=== PATIENT | male | born 1975 | race Two or more races ===

== ENCOUNTER 2019-09-17 06:17 | Inpatient (IN) | payer OTHER ==
[~2019-09-17] VITALS: Ht 182.9 cm; Wt 122.5 kg
[2019-09-17 08:14] LABS: CALCIUM 7.1 mg/dL (8.5-10.1); CARBON DIOXIDE 21.2 mmol/L (21-32); CHLORIDE SERUM 108 mmol/L (98-107); CREATININE SERUM 1.3 mg/dL (0.7-1.3); GFR1 > 60 mL/min; GLUCOSE SERUM 182 mg/dL (74-106); PLATELET COUNT 403 x10^3mcL (130-400); SODIUM SERUM 139 mmol/L (136-145)
[2019-09-17 08:19] LABS: ALKALINE PHOSPHATASE 74 U/L (46-116); ALT/SGPT 22 U/L (16-63); AST/SGOT 14 U/L (15-37); BILIRUBIN TOTAL 0.14 mg/dL (0.20-1.00)
[2019-09-17 08:24] LABS: ALBUMIN 2.5 g/dL (3.4-5.0); TOTAL PROTEIN, SERUM 5.5 g/dL (6.4-8.2)
[2019-09-17 09:04] LABS: PLATELET COUNT 405 x10^3mcL (130-400); RED CELL DISTRIBUTION WIDTH 18.2 % (11.5-14.5)
[2019-09-17 09:21] LABS: AMPHETAMINE QUAL UR POSITIVE (See below)
[2019-09-17 09:54] LABS: BAND NEUTROPHIL 4 % (0-10); MONOCYTE 4 % (0-7); SEGMENTED NEUTROPHILS 83 % (37-75)
[2019-09-17 09:55] LABS: rbc morphology (normal/abnorm) NORMAL (NORMAL)
[2019-09-17 10:24] LABS: BAND NEUTROPHIL 6 % (0-10); MONOCYTE 4 % (0-7); SEGMENTED NEUTROPHILS 83 % (37-75); rbc morphology (normal/abnorm) ABNORMAL (NORMAL)
[2019-09-17] MEDS ORDERED: PRILOSEC OTC20 M1 PO (10:46)
[2019-09-17 11:29] LABS: AMYLASE 48 U/L (25-115); CHOLESTEROL 169 mg/dL (<200); CHOLESTEROL/HDL RATIO 7.7; HDL CHOLESTEROL 22 mg/dL (40-60); LIPASE 176 IU/L (73-393); MAGNESIUM 1.7 mg/dL (1.8-2.4); PHOSPHOROUS 3.5 mg/dL (2.5-4.9); TRIGLYCERIDES 491 mg/dL (<150)
[2019-09-17 11:31] LABS: UA SPECIFIC GRAVITY 1.015 (1.005-1.035); microscopic required? YES; urine erythrocyte NEGATIVE (NEGATIVE)
[2019-09-17 11:33] LABS: C REACTIVE PROTEIN 1.3 mg/dL (<=0.9)
[2019-09-17 11:38] LABS: T3 TOTAL 1.42 ng/mL
[2019-09-17 11:54] LABS: FREE T4 1.18 ng/dL (0.76-1.46); FREE THYROXINE INDEX 2.5 ug/dL (1.4-4.5); T4(THYROXINE) 6.7 ug/dL (4.7-13.3)
[2019-09-17] MEDS ORDERED: PROAIR HFA8.5 GM INH (11:59)
[2019-09-17 14:05] VITALS: BP 117/85
[2019-09-17 17:02] VITALS: BP 114/85
[2019-09-17 17:05] VITALS: Ht 182.9 cm; Wt 122.5 kg
[2019-09-17 20:54] VITALS: BP 135/87
== END 2019-09-18 04:13 | disposition left against medical advice (07) | DRG 811 ==
LOC: ED 06:17 → DU 10:43 → IC 10:43 → DU 15:56
PROVIDERS: Student in an Organized Health Care Education/Training Program; ADMIT Internal Medicine; ATTEND Internal Medicine
DX: T78.04XA Anaphylactic reaction due to fruits and vegetables, initial encounter (principal); E43 Unspecified severe protein-calorie malnutrition; E83.51 Hypocalcemia; E83.42 Hypomagnesemia; E11.9 Type 2 diabetes mellitus without complications; I10 Essential (primary) hypertension; J45.909 Unspecified asthma, uncomplicated; E78.5 Hyperlipidemia, unspecified; Z91.018 Allergy to other foods; E78.1 Pure hyperglyceridemia; Z68.34 Body mass index [BMI] 34.0-34.9, adult; Z53.29 Procedure and treatment not carried out because of patient's decision for other reasons
CPT/HCPCS: 82962; 83880; 84439; 85378; G0378; G0480; J0171; J1200; J2920; J2930; J3490; J3535; J7626; Q0092

== ENCOUNTER 2020-03-02 18:03 | Emergency (ER) | payer OTHER ==
[~2020-03-02] VITALS: Ht 182.9 cm; Wt 127.9 kg
[~2020-03-02 18:03] MED LIST: PRILOSEC OTC20 M1 PO; PROAIR HFA8.5 GM INH
[2020-03-02 18:06] VITALS: Ht 182.9 cm; Wt 127.9 kg
[2020-03-02 19:46] VITALS: BP 116/66
== END 2020-03-02 19:46 | disposition home or self-care (01) ==
LOC: ED 18:03
DX: S43.401A Unspecified sprain of right shoulder joint, initial encounter (principal); I10 Essential (primary) hypertension; E11.9 Type 2 diabetes mellitus without complications; E78.00 Pure hypercholesterolemia, unspecified; Z90.89 Acquired absence of other organs; Z88.8 Allergy status to other drugs, medicaments and biological substances; W17.89XA Other fall from one level to another, initial encounter; Y93.89 Activity, other specified; Y92.89 Other specified places as the place of occurrence of the external cause; Y99.8 Other external cause status
CPT/HCPCS: J1885

== ENCOUNTER 2020-03-12 06:57 | Emergency (ER) | payer OTHER ==
[~2020-03-12] VITALS: Ht 182.9 cm; Wt 122.5 kg
[2020-03-12 06:59] VITALS: BP 122/83; Ht 182.9 cm; Wt 122.5 kg
== END 2020-03-12 09:14 | disposition home or self-care (01) ==
LOC: ED 06:57
DX: R05 Cough (principal); G43.909 Migraine, unspecified, not intractable, without status migrainosus; I10 Essential (primary) hypertension; E11.9 Type 2 diabetes mellitus without complications; E78.00 Pure hypercholesterolemia, unspecified; Z90.89 Acquired absence of other organs; Z20.828 Contact with and (suspected) exposure to other viral communicable diseases; Z91.018 Allergy to other foods
CPT/HCPCS: U0003

== ENCOUNTER 2020-04-25 16:40 | Emergency (ER) | payer OTHER, SELFPAY ==
[~2020-04-25] VITALS: Ht 182.9 cm; Wt 124.7 kg
[2020-04-25 17:18] VITALS: Ht 182.9 cm; Wt 124.7 kg
[2020-04-25 18:25] VITALS: BP 120/93
== END 2020-04-25 18:25 | disposition home or self-care (01) ==
LOC: ED 16:40
DX: U07.1 COVID-19 (principal); J45.909 Unspecified asthma, uncomplicated; I10 Essential (primary) hypertension; E11.9 Type 2 diabetes mellitus without complications; E78.00 Pure hypercholesterolemia, unspecified; Z98.890 Other specified postprocedural states; Z91.018 Allergy to other foods
CPT/HCPCS: U0003

== ENCOUNTER 2020-05-10 15:54 | Emergency (ER) | payer OTHER ==
[~2020-05-10] VITALS: Ht 177.8 cm; Wt 122.5 kg
[2020-05-10 15:56] VITALS: Ht 177.8 cm; Wt 122.5 kg
[2020-05-10 19:23] VITALS: BP 155/88
== END 2020-05-10 19:02 | disposition home or self-care (01) ==
LOC: ED 15:54
DX: J98.11 Atelectasis (principal); F41.9 Anxiety disorder, unspecified; J45.909 Unspecified asthma, uncomplicated; E78.00 Pure hypercholesterolemia, unspecified; Z90.89 Acquired absence of other organs; E66.9 Obesity, unspecified; Z68.38 Body mass index [BMI] 38.0-38.9, adult; F10.129 Alcohol abuse with intoxication, unspecified; Z88.8 Allergy status to other drugs, medicaments and biological substances
CPT/HCPCS: 36600; 82962; 99406

== ENCOUNTER 2020-06-25 23:08 | Emergency (ER) | payer OTHER ==
[~2020-06-25] VITALS: Ht 180.3 cm; Wt 127.0 kg
[2020-06-25 23:25] VITALS: BP 123/85; Ht 180.3 cm; Wt 127.0 kg
== END 2020-06-26 01:30 | disposition left against medical advice (07) ==
LOC: ED 23:08
DX: Z53.21 Procedure and treatment not carried out due to patient leaving prior to being seen by health care provider (principal)